=== PATIENT | male | born 1950 | race Caucasian/White ===

== ENCOUNTER 2021-05-11 05:55 | Emergency (ER) | payer MEDICARE, OTHER ==
[~2021-05-11] VITALS: Ht 172.7 cm; Wt 83.9 kg
[2021-05-11 06:09] VITALS: BP 154/80
--- NOTE | 2021-05-11 06:24 | NUR ---
C/C BILATERAL FLANK PAIN X 3 WEEKS. REPORTS DIFFCULTY URINATING. DENIES N/V/D, FEVER, CHILLS. REPORTS TAKING NORCO AT HOME WITH RELIEF. DENIES BURNING WITH URINATION. HX: ENLARGED PROSTATE, ASTHMA ALLERGIES: NKA
--- NOTE | 2021-05-11 06:54 | NUR ---
PT BEING TAKEN TO XRAY VIA W.C.
--- NOTE | 2021-05-11 07:02 | NUR ---
patient back from xray via w/c
--- NOTE | 2021-05-11 07:09 | NUR ---
Report and continuation of care received from KWAKU Pino.
--- NOTE | 2021-05-11 07:09 | NUR ---
Pt report given to Jj AMES. Transfer of care at this time.
[2021-05-11] MEDS ORDERED: ACET-8386 PO (07:55)
[2021-05-11 08:34] VITALS: BP 134/68
[2021-05-11 11:08] LABS: APPEARANCE,URINE CLEAR (CLEAR); BILIRUBIN,URINE NEGATIVE (NEGATIVE); BLOOD, URINE NEGATIVE (NEGATIVE); COLOR,URINE YELLOW (YELLOW); LEUKOCYTE ESTERASE ,URINE NEGATIVE (NEGATIVE); NITRITE, URINE NEGATIVE (NEGATIVE); UGLUCOSE NEGATIVE (NEGATIVE)
== END 2021-05-11 08:36 | disposition home or self-care (01) ==
LOC: MED 05:55
DX: M54.50 Low back pain, unspecified (principal); J45.909 Unspecified asthma, uncomplicated; K21.9 Gastro-esophageal reflux disease without esophagitis; Z79.891 Long term (current) use of opiate analgesic
CPT/HCPCS: 72100; 81003; 99284